=== PATIENT | male | born 2000 | race Caucasian/White ===

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

== ENCOUNTER 2024-08-16 07:14 | Emergency (ER) | payer SELFPAY ==
[2024-08-16 07:21] VITALS: BP 136/89; PULSE 67; RESP 19; TEMP 98.1; BMI 33.5
== END 2024-08-16 08:06 | disposition home or self-care (01) ==
LOC: JERFT 07:14 → JER 07:14 → JERFT 08:06
DX: H61.23 Impacted cerumen, bilateral (principal); H92.02 Otalgia, left ear; R09.81 Nasal congestion; H93.8X2 Other specified disorders of left ear; L98.8 Other specified disorders of the skin and subcutaneous tissue
CPT/HCPCS: 99283-25